=== PATIENT | female | born 1990 ===

== ENCOUNTER 2022-04-22 10:55 | Outpatient (CLI) | payer OTHER ==
[~2022-04-22] VITALS: Ht 160 cm; Wt 62.6 kg
[2022-04-22] MEDS ORDERED: MULTTAB20 PO (11:11)
[2022-04-22] MEDS ORDERED: HOME MED LIST COMPLETE! XX SCH (11:15)
[2022-04-22 11:18] VITALS: BP 124/75
== END 2022-04-22 12:33 | disposition home or self-care (01) ==
LOC: M LDO 10:55
PROVIDERS: ATTEND Specialist
DX: O26.892 Other specified pregnancy related conditions, second trimester (principal); R25.2 Cramp and spasm; M54.50 Low back pain, unspecified; Z3A.23 23 weeks gestation of pregnancy